=== PATIENT | male | born 1960 | race African-American/Black ===

== ENCOUNTER 2021-10-05 06:35 | Emergency (ER) | payer MEDICAID ==
[~2021-10-05] VITALS: Ht 167.6 cm; Wt 82.7 kg
[2021-10-05] MEDS ORDERED: ACET-1080 PO (08:13)
[2021-10-05] MEDS ORDERED: ACETAMINOPHEN 500 MG TAB PO ONE (08:15)
[2021-10-05 08:34] VITALS: BP 93/68
== END 2021-10-05 08:33 | disposition home or self-care (01) ==
LOC: ER 06:35
DX: S93.402A Sprain of unspecified ligament of left ankle, initial encounter (principal); I10 Essential (primary) hypertension; E78.5 Hyperlipidemia, unspecified; Z86.73 Personal history of transient ischemic attack (TIA), and cerebral infarction without residual deficits; Z79.899 Other long term (current) drug therapy; X50.1XXA Overexertion from prolonged static or awkward postures, initial encounter; Y93.89 Activity, other specified; Y92.89 Other specified places as the place of occurrence of the external cause; Y99.8 Other external cause status
CPT/HCPCS: 73610

== ENCOUNTER 2023-06-20 01:27 | Emergency (ER) | payer MEDICAID ==
[~2023-06-20] VITALS: Ht 175.3 cm; Wt 77.1 kg
[~2023-06-20 01:27] MED LIST: ACET-1080 PO
[2023-06-20 01:49] LABS: Basophils # (auto) 0 10 ^3/uL (0-0.2); Basophils % (auto) 0.7 % (0.0-2.0); Eosinophils # (auto) 0.1 10 ^3/uL (0-0.8); Hematocrit 45.7 % (41.0-53.0); Hemoglobin 14.8 g/dL (13.5-17.5); Lymphocytes # (auto) 1.7 10 ^3/uL (0.4-5.4); Lymphocytes % (auto) 28.2 % (10.0-50.0); Mean Corpuscular Hemoglobin 27.8 pg (28.0-32.0); Mean Corpuscular Hgb Conc. 32.3 g/dL (32.0-36.0); Mean Corpuscular Volume 86.1 fL (80.0-100.0); Monocytes # (auto) 0.4 10 ^3/uL (0-1.3); Neutrophils # (auto) 3.8 10 ^3/uL (1.6-8.6); Neutrophils % (auto) 62.1 % (37.0-80.0); Nucleated Red Blood Cells % 0.1 %; Red Blood Cells 5.31 10^6/uL (4.5-5.90); Red Cell Distribution Width 17.6 % (11.8-14.3); White Blood Cell 6.2 10^3/uL (4.4-10.8)
[2023-06-20 02:11] LABS: Alanine Aminotransferase 33 U/L (7-40); Albumin 3.8 g/dL (3.2-4.8); Alkaline Phosphatase 98 U/L (46-116); Anion Gap 8 (5-15); Aspartate Aminotransferase 59 U/L (13-40); Calcium 8.8 mg/dL (8.5-10.1); Carbon Dioxide 28 mmol/L (20-30); Chloride 108 mmol/L (98-107); Glucose 112 mg/dL (74-106); Potassium 3.1 mmol/L (3.5-5.1); Sodium 144 mmol/L (136-145)
[2023-06-20 02:12] LABS: Bilirubin, Total 0.3 mg/dL (0.2-1.0); Total Protein 7.6 g/dL (5.7-8.2)
[2023-06-20 02:14] LABS: BUN/Creatinine Ratio 6.6 (10.0-20.0); Blood Urea Nitrogen < 5 mg/dL (9-23)
[2023-06-20] MEDS: levETIRAcetam 1000 mg/100ml 100 ML IV ONE (03:10)
[2023-06-20 03:30] VITALS: PULSE 78; RESP 20; O2SAT 97
[2023-06-20 07:31] VITALS: PULSE 75; RESP 20; O2SAT 95
[2023-06-20] MEDS: IOHEXOL 300 MG/ML 100ML BOTTLE IJ ONE (07:52)
[2023-06-20 08:05] LABS: Magnesium 1.9 mg/dL (1.6-2.6)
[2023-06-20] MEDS: SODIUM CHLORIDE 0.9% 1,000 ML IVB ONE (10:25)
[2023-06-20] MEDS: POTASSIUM EFFERVESENT TAB 25 MEQ PO ONE (10:35)
[2023-06-20 10:45] VITALS: BP 125/84; PULSE 88; RESP 15; TEMP 97.8; O2SAT 96
== END 2023-06-20 11:15 | disposition home or self-care (01) ==
LOC: ER 01:27 → EDBD 01:27 → ER 11:15
DX: G40.909 Epilepsy, unspecified, not intractable, without status epilepticus (principal); F10.10 Alcohol abuse, uncomplicated; E87.6 Hypokalemia; K40.90 Unilateral inguinal hernia, without obstruction or gangrene, not specified as recurrent; K76.0 Fatty (change of) liver, not elsewhere classified; Z86.73 Personal history of transient ischemic attack (TIA), and cerebral infarction without residual deficits; E78.5 Hyperlipidemia, unspecified; I10 Essential (primary) hypertension; Y90.8 Blood alcohol level of 240 mg/100 ml or more
CPT/HCPCS: 36415; 70450; 71045; 71046; 72125; 74177; 80053; 80320; 82542; 83690; 83735; 85025; 93005; 96361; 96365; 99285; J1953; J7030; Q9967

== ENCOUNTER 2023-07-24 11:17 | Inpatient (IN) | payer MEDICAID ==
[~2023-07-24] VITALS: Ht 167.6 cm; Wt 75.4 kg
[2023-07-24 12:11] LABS: Basophils # (auto) 0 10 ^3/uL (0-0.2); Basophils % (auto) 0.4 % (0.0-2.0); Eosinophils # (auto) 0.1 10 ^3/uL (0-0.8); Eosinophils % (auto) 0.7 % (0.0-7.0); Hematocrit 47.5 % (41.0-53.0); Hemoglobin 15.8 g/dL (13.5-17.5); Lymphocytes # (auto) 0.8 10 ^3/uL (0.4-5.4); Lymphocytes % (auto) 10.2 % (10.0-50.0); Mean Corpuscular Hemoglobin 28.6 pg (28.0-32.0); Mean Corpuscular Hgb Conc. 33.2 g/dL (32.0-36.0); Mean Corpuscular Volume 86.1 fL (80.0-100.0); Monocytes # (auto) 0.5 10 ^3/uL (0-1.3); Monocytes % (auto) 6.6 % (0.0-12.0); Neutrophils # (auto) 6.2 10 ^3/uL (1.6-8.6); Neutrophils % (auto) 82.1 % (37.0-80.0); Nucleated Red Blood Cells % 0.2 %; Red Blood Cells 5.51 10^6/uL (4.5-5.90); Red Cell Distribution Width 16.5 % (11.8-14.3); White Blood Cell 7.6 10^3/uL (4.4-10.8)
[2023-07-24 12:19] LABS: Chloride 106 mmol/L (98-107); Potassium 3.3 mmol/L (3.5-5.1); Sodium 136 mmol/L (136-145)
[2023-07-24 12:20] LABS: Anion Gap 5 (5-15); Carbon Dioxide 25 mmol/L (20-30)
[2023-07-24 12:21] LABS: Calcium 9.9 mg/dL (8.5-10.1)
[2023-07-24 12:25] LABS: Glucose 120 mg/dL (74-106)
[2023-07-24 12:27] LABS: BUN/Creatinine Ratio 5.4 (10.0-20.0); Blood Urea Nitrogen < 5 mg/dL (9-23)
[2023-07-24] MEDS: IOHEXOL 300 MG/ML 100ML BOTTLE IJ ONE (13:43)
[2023-07-24] MEDS ORDERED: ACETAMINOPHEN 325 MG TAB PO PRN (16:45)
[2023-07-24] MEDS: SODIUM CHLORIDE 0.9% 1,000 ML IV SCH (16:45)
[2023-07-24] MEDS: metroNIDAZOLE 500MG/100ML 100 ML IV ONE (17:34)
[2023-07-25] VITALS (8 sets, daily range): BP systolic 107–137; BP diastolic 68–90; PULSE 60–70; RESP 16–20; TEMP 97.5–98.2; O2SAT 97–100
[2023-07-25] MEDS: PIPERACILLIN-TAZOB 3.375GM 100 ML IV SCH
[2023-07-25] MEDS: MORPHINE SULFATE INJ 2 MG/ml SYRG IV PRN (00:06)
[2023-07-25] MEDS: ONDANSETRON HCL 4 MG/2 ML VIAL IV PRN (00:15)
[2023-07-25] MEDS ORDERED: PHEN1CAP60 PO (04:33)
[2023-07-25 07:02] LABS: Anion Gap 4 (5-15); Carbon Dioxide 27 mmol/L (20-30); Chloride 108 mmol/L (98-107); Potassium 3.6 mmol/L (3.5-5.1); Sodium 139 mmol/L (136-145)
[2023-07-25 07:03] LABS: Calcium 8.6 mg/dL (8.5-10.1)
[2023-07-25 07:08] LABS: Glucose 80 mg/dL (74-106)
[2023-07-25 07:14] LABS: Blood Urea Nitrogen < 5 mg/dL (9-23)
[2023-07-25] MEDS ORDERED: NALOXONE HCL 0.4 MG/ML VIAL ONE (12:21)
[2023-07-25] MEDS ORDERED: SODIUM CHLORIDE LOCK 10 ML ONE (12:21)
[2023-07-25] MEDS ORDERED: FLUMAZENIL 0.1 MG/ML INJ 10ML MDV IV ONE (12:21)
[2023-07-25] MEDS ORDERED: diphenhdrAMINE HCL 50 MG/1 ML VL ONE (12:29)
[2023-07-25] MEDS: fentaNYL CITRATE 100 MCG/2 ML VL ONE (14:30)
[2023-07-25] MEDS: MIDAZOLAM HCL 5 MG/ML-1ML VIAL ONE (14:30)
[2023-07-25] MEDS: HYDROcodone-ACET 5/325MG TAB PO PRN (23:10)
[2023-07-26 05:00] VITALS: BP 115/75; PULSE 62; RESP 18; TEMP 98.6; O2SAT 97
[2023-07-26 08:46] LABS: Hepatitis B Surface Antigen Negative (Negative)
[2023-07-26 09:00] VITALS: BP 120/77; PULSE 62; RESP 15; TEMP 97.8; O2SAT 96
[2023-07-26 09:08] LABS: Hepatitis C Antibody Negative (Negative)
[2023-07-26] MEDS ORDERED: ASPI1TAB20 PO (12:31)
[2023-07-26] MEDS ORDERED: DOCU-94 PO (12:32)
[2023-07-26 13:25] VITALS: BP 111/74; PULSE 50; RESP 22; TEMP 98.6; O2SAT 96
[2023-07-26 17:20] VITALS: BP 130/73; PULSE 61; RESP 20; TEMP 98.4; O2SAT 98
[2023-07-26 20:28] LABS: Urine Bacteria None Seen /hpf (None Seen); Urine WBC None Seen /hpf (0 - 3)
[2023-07-26 20:39] LABS: Urine Blood Negative /uL (Negative); Urine Clarity Clear (Clear); Urine Color Colorless (Yellow); Urine Protein, UAD Negative (Negative); Urine Specific Gravity 1.002 (1.001-1.035); Urine Urobilinogen Normal (Negative); Urine pH 5.5 (5.0-9.0)
[2023-07-26 21:00] VITALS: BP 135/78; PULSE 71; RESP 18; TEMP 97.8; O2SAT 99
[2023-07-27 01:00] VITALS: BP 126/75; PULSE 60; RESP 18; TEMP 97.9; O2SAT 98
[2023-07-27 05:00] VITALS: BP 132/78; PULSE 54; RESP 18; TEMP 97.8; O2SAT 98
[2023-07-27 09:00] VITALS: BP 122/80; PULSE 77; RESP 17; TEMP 98.4; O2SAT 98
[2023-07-27] MEDS ORDERED: METR-344 PO (14:28)
[2023-07-27] MEDS ORDERED: AMOX500T86 PO (14:28)
[2023-07-27] MEDS ORDERED: HYDR-4902 PO (16:36)
[2023-07-27 17:00] VITALS: BP_SYST 107; BP_SYST 122; BP_DIAS 74; BP_DIAS 87; PULSE 66; PULSE 71; RESP 16; RESP 19; TEMP 98.2; TEMP 98.6; O2SAT 97; O2SAT 99
== END 2023-07-27 19:10 | disposition home or self-care (01) | DRG 249 ==
LOC: ER 11:17 → OVERFLOW 16:42 → CENTRAL 07-25 03:18
PROVIDERS: ADMIT Internal Medicine; ATTEND Internal Medicine
PROC: 0DBP8ZX Excision of Rectum, Via Natural or Artificial Opening Endoscopic, Diagnostic (ICD-10-PCS; principal; 2023-07-25 14:28)
DX: K52.9 Noninfective gastroenteritis and colitis, unspecified (principal); E11.9 Type 2 diabetes mellitus without complications; K62.89 Other specified diseases of anus and rectum; I10 Essential (primary) hypertension; F17.210 Nicotine dependence, cigarettes, uncomplicated; E78.5 Hyperlipidemia, unspecified; G40.909 Epilepsy, unspecified, not intractable, without status epilepticus; K40.20 Bilateral inguinal hernia, without obstruction or gangrene, not specified as recurrent; Z86.73 Personal history of transient ischemic attack (TIA), and cerebral infarction without residual deficits; Z83.3 Family history of diabetes mellitus; Z82.3 Family history of stroke; Z82.0 Family history of epilepsy and other diseases of the nervous system; Z79.4 Long term (current) use of insulin
CPT/HCPCS: 36415; 45331; 73502; 74177; 80048; 81001; 85025; 86803; 87086; 87340; G0378; J2250; J2405; J2543; J3490

== ENCOUNTER 2024-02-04 11:40 | Emergency (ER) | payer MEDICAID ==
[~2024-02-04] VITALS: Ht 167.6 cm; Wt 72.7 kg
[~2024-02-04 11:40] MED LIST changes: +AMOX500T86 PO; +ASPI1TAB20 PO; +DOCU-94 PO; +HYDR-4902 PO; +METR-344 PO; +PHEN1CAP38 PO
--- NOTE | 2024-02-04 12:01 | ED.PDOC ---
History of Present Illness HPI Comments 63-year-old male who comes in with chief complaint of multiple seizures today. The patient has a history of seizures in his currently on Depakote and Keppra. According to the family, the patient had a seizure and when the paramedics arrived on scene, the patient had multiple seizures lasting a total of between five and 7 minutes. The seizures were tonic-clonic in nature. The patient was also been drinking some alcohol. The paramedics stated that the patient became somewhat hypotensive so they gave him a normal saline bolus. EN route, the patient was given a total of 5 mg IV push of Versed. Upon arrival, the patient was still postictal. Chief Complaint: Seizure Time Seen by MD: 11:45 Reviewed Notes: Nurses Notes, Administrative Support Associate Notes, Medications, Allergies (No allergies to medications) Allergies: Coded Allergies: NO KNOWN ALLERGIES (Unverified , 06/20/23) Home Meds Active Scripts Hydrocodone-Acetaminophen (Hydrocodone Bitartrate/AC 5-325 mg) 1 Tab Tab, 1 TAB PO Q8HPRN PRN, #10 TAB Prov:YASMEEN LANDIN MD 07/27/23 Metronidazole (Flagyl) 500 Mg Tab, 1 TAB PO BID, #14 TAB Prov:YASMEEN LANDIN MD 07/27/23 Amoxicillin & Pot Clavulanate (Augmentin) 500 Mg Tab, 1 TAB PO BID, #14 TAB Prov:YASMEEN LANDIN MD 07/27/23 Acetaminophen (Tylenol 8 Hour Arthritis) 650 Mg Tab, 650 MG PO TID, #30 TAB Prov:TONI LOMBARDI 10/05/21 Reported Medications Docusate Sodium (Colace) 100 Mg Cap, 1 CAP PO BID, #60 CAP 07/26/23 Aspirin (Aspir-81) 81 Mg Tab, 81 MG PO BID, TAB 07/26/23 Phenytoin Sodium (DILANTIN CAPSULE) 100 Mg Cp, 200 MG PO BID for 30 Days 07/25/23 Information Source: Patient, Emergency Med Personnel Mode of Arrival: EMS Severity: Moderate Timing: Minutes, Days Duration: Intermittent Prehospital treatment: Accucheck, Portfolio Accountant, IVF, Other (The Versed 5 mg IV push, normal saline bolus) Associated signs and symptoms No associated nausea vomiting or diarrhea Past Medical History PAST MEDICAL HISTORY: CVA, DM, High Lipids, HTN, Seizures Surgical History: Tonsillectomy Family History Family History: Family hx of DM Social History Smoker: Cigarettes Alcohol: Occasionally Drugs: Denies Drug Use Lives In: Home Constitutional: denies: chills, diaphoresis, fatigue, fever, malaise, sweats, weakness, others EENTM: denies: blurred vision, double vision, ear bleeding, ear discharge, ear drainage, ear pain, ear ringing, eye pain, eye redness, hearing loss, mouth pain, mouth swelling, nasal discharge, nose bleeding, nose congestion, nose pain, photophobia, tearing, throat pain, throat swelling, voice changes, others Respiratory: denies: cough, hemoptysis, orthopnea, SOB at rest, shortness of breath, SOB with excertion, stridor, wheezing, others Cardiovascular: denies: chest pain, dizzy spells, diaphoresis, Dyspnea on exertion, edema, irregular heart beat, left arm pain, lightheadedness, palpitations, PND, syncope, others Gastrointestinal: denies: abdomen distended, abdominal pain, blood streaked bowels, constipated, diarrhea, dysphagia, difficulty swallowing, hematemesis, melena, nausea, poor appetite, poor fluid intake, rectal bleeding, rectal pain, vomiting, others Genitourinary: denies: burning, dysuria, flank pain, frequency, hematuria, incontinence, penile discharge, penile sore, pain, testicle pain, testicle swelling, urgency, others Neurological: reports: seizure; denies: dizziness, fainting, headache, left sided numbness, left sided weakness, numbness, paresthesia, pre-existing deficit, right sided numbness, right sided weakness, speech problems, tingling, tremors, weakness, others Musculoskeletal: denies: back pain, gout, joint pain, joint swelling, muscle pain, muscle stiffness, neck pain, others Integumetry: denies: bruises, change in color, change in hair/nails, dryness, laceration, lesions, lumps, rash, wounds, others Allergic/Immunocompromised: denies: Difficulty Healing, Frequent Infections, Hives, Itching, others Hematologic/Lymphatic: denies: anemia, blood clots, easy bleeding, easy bruising, swollen glands, others Endocrine: denies: excessive hunger, excessive sweating, excessive thirst, excessive urination, flushing, intolerance to cold, intolerance to heat, unexplained weight gain, unexplained weight loss, others Psychiatric: denies: anxiety, bipolar disorder, depression, hopeless, panic disorder, schizophrenia, sleepless, suicidal, others Physical Exam General Appearance: Mild Distress HEENT: Normal ENT Inspection, Pharynx Normal, TMs Normal Neck: Full Range of Motion, Non-Tender, Normal, Normal Inspection Respiratory: Chest Non-Tender, Lungs Clear, No Accessory Muscle Use, No Respiratory Distress, Normal Breath Sounds Cardiovascular: No Edema, No JVD, No Murmur, No Gallop, Normal Peripheral Pulses, Regular Rate/Rhythm Breast Exam: Deferred Gastrointestinal: No Organomegaly, Non Tender, No Pulsatile Mass, Normal Bowel Sounds, Soft Genitalia: Deferred Pelvic: Deferred Rectal: Deferred Extremities: No calf tenderness, Normal capillary refill, Normal inspection, Normal range of motion, Non-tender, No pedal edema Musculoskeletal : Apperance: Normal Neurologic: [facility] II-XII nml as Tested, Motor Weakness, No Sensory Deficits, Other (Postictal) Cerebellar Function: Normal Reflexes: Normal Skin: Dry, Normal Color, Warm Lymphatic: No Adenopathy Was a procedure done? Was a procedure done?: No EKG EKG : Pulse Rate (adult): 76 [place]: Normal Cardiac Rhythm: NSR Hypertrophy: LAE ST: Nonsp Differential Dx Considerations may include: CVA, seizures, ETOH X-Ray, Labs, Meds, VS Vital Signs Date Time Temp Pulse Resp B/P (MAP) Pulse Ox O2 Delivery O2 Flow Rate FiO2 02/04/24 16:00 71 02/04/24 14:33 67 19 106/68 (81) 98 02/04/24 12:07 71 02/04/24 12:01 76 02/04/24 11:58 97.9 90 21 91/50 (64) 98 02/04/24 11:46 76 Lab Test 02/04/24 13:26 Range/Units White Blood Count 4.4 4.4-10.8 10^3/uL Red Blood Count 4.87 4.5-5.90 10^6/uL Hemoglobin 13.0 L 13.5-17.5 g/dL Hematocrit 40.2 L 41.0-53.0 % Mean Corpuscular Volume 82.5 80.0-100.0 fL Mean Corpuscular Hemoglobin 26.7 L 28.0-32.0 pg Mean Corpuscular Hemoglobin Concent 32.4 32.0-36.0 g/dL Red Cell Distribution Width 17.0 H 11.8-14.3 % Platelet Count 230 140-450 10^3/uL Mean Platelet Volume 8.4 6.9-10.8 fL Neutrophils (%) (Auto) 52.1 37.0-80.0 % Lymphocytes (%) (Auto) 28.2 10.0-50.0 % Monocytes (%) (Auto) 11.8 0.0-12.0 % Eosinophils (%) (Auto) 6.5 0.0-7.0 % Basophils (%) (Auto) 1.4 0.0-2.0 % Neutrophils # (Auto) 2.3 1.6-8.6 10 ^3/uL Lymphocytes # (Auto) 1.2 0.4-5.4 10 ^3/uL Monocytes # (Auto) 0.5 0-1.3 10 ^3/uL Eosinophils # (Auto) 0.3 0-0.8 10 ^3/uL Basophils # (Auto) 0.1 0-0.2 10 ^3/uL Nucleated Red Blood Cells 0.3 % Sodium Level 145 136-145 mmol/L Potassium Level 3.7 3.5-5.1 mmol/L Chloride Level 111 H 98-107 mmol/L Carbon Dioxide Level 26 20-31 mmol/L Anion Gap 8 5-15 Blood Urea Nitrogen 7 L 9-23 mg/dL Creatinine 0.89 0.700-1.30 mg/dL Glomerular Filtration Rate Calc 96 >90 mL/min BUN/Creatinine Ratio 7.9 L 10.0-20.0 Serum Glucose 103 74-106 mg/dL Calcium Level 9.1 8.7-10.4 mg/dL Plasma/Serum Blood Alcohol 179.8 H <10 mg/dL Current Medications Medications (Trade) Dose Ordered Sig/Cesia Route Start Time Stop Time Status Last Admin Levetiracetam 100 ml @ 400 mls/hr ONCE ONCE IV 02/04/24 12:00 02/04/24 12:14 DC 02/04/24 12:16 IV Hep-Lock was established Seizure precautions were placed on the patient We will continue to bolus the patient with normal saline The patient was given Keppra 1000 mg IV push The patient was now awakened. He states that he does take Dilantin and Depakote. His significant other is at bedside and states that he is not compliant with his medications His alcohol level is 179.8 The patient's CBC and chemistry panel are within normal limits The patient is being discharged and will follow up with the primary care doctor The patient will return to the emergency department's condition worsens Images Reviewed?: Images reviewed and evaluated by me Time of 1ST Reevaluation: 12:00 Reevaluation 1ST: Unchanged Patient Education/Counseling: Diagnosis, Treatment, Prognosis, Need For Follow Up Family Education/Counseling: Diagnosis, Treatment, Prognosis, Need For Follow Up Departure 1 Departure Time of Disposition: 16:42 Impression: Primary Impression: Alcohol abuse Additional Impression: Breakthrough seizure Disposition: 01 HOME / SELF CARE / HOMELESS Condition: Fair Discharged With: Self, Significant Other Critical Care Note Critical Care Time?: Yes (35 min-critical care time only) Stability Stability form required: No Heart Score Heart Score: Heart Score Response (Comments) Value History N/A 0 EKG N/A 0 Age N/A 0 Risk Factors N/A 0 Troponin N/A 0 Total 0 RUTH BRADY MD Feb 04, 2024 12:01
[2024-02-04] MEDS: levETIRAcetam 1000 mg/100ml 100 ML IV ONE (12:16)
[2024-02-04 13:36] LABS: Basophils # (auto) 0.1 10 ^3/uL (0-0.2); Basophils % (auto) 1.4 % (0.0-2.0); Eosinophils # (auto) 0.3 10 ^3/uL (0-0.8); Eosinophils % (auto) 6.5 % (0.0-7.0); Hematocrit 40.2 % (41.0-53.0); Lymphocytes # (auto) 1.2 10 ^3/uL (0.4-5.4); Lymphocytes % (auto) 28.2 % (10.0-50.0); Mean Corpuscular Hemoglobin 26.7 pg (28.0-32.0); Mean Corpuscular Hgb Conc. 32.4 g/dL (32.0-36.0); Mean Corpuscular Volume 82.5 fL (80.0-100.0); Monocytes # (auto) 0.5 10 ^3/uL (0-1.3); Monocytes % (auto) 11.8 % (0.0-12.0); Neutrophils # (auto) 2.3 10 ^3/uL (1.6-8.6); Neutrophils % (auto) 52.1 % (37.0-80.0); Nucleated Red Blood Cells % 0.3 %; Platelet Count (auto) 230 10^3/uL (140-450); Red Blood Cells 4.87 10^6/uL (4.5-5.90); White Blood Cell 4.4 10^3/uL (4.4-10.8)
[2024-02-04 13:50] LABS: Potassium 3.7 mmol/L (3.5-5.1); Sodium 145 mmol/L (136-145)
[2024-02-04 13:51] LABS: Anion Gap 8 (5-15); Calcium 9.1 mg/dL (8.7-10.4); Carbon Dioxide 26 mmol/L (20-31)
[2024-02-04 13:56] LABS: BUN/Creatinine Ratio 7.9 (10.0-20.0); Glucose 103 mg/dL (74-106)
[2024-02-04 13:57] LABS: Blood Alcohol 179.8 mg/dL (<10)
[2024-02-04 14:03] LABS: Blood Urea Nitrogen 7 mg/dL (9-23); Chloride 111 mmol/L (98-107)
[2024-02-04 14:33] VITALS: BP 106/68; RESP 19; O2SAT 98
[2024-02-04 16:00] VITALS: PULSE 71
[2024-02-04] MEDS: PHENYTOIN SODIUM 100 MG CAP PO ONE (17:10)
--- NOTE | 2024-02-05 08:00 | ECG ---
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
== END 2024-02-04 18:01 | disposition home or self-care (01) ==
LOC: EDBD 11:40 → ER 11:44
DX: F10.10 Alcohol abuse, uncomplicated (principal); R56.9 Unspecified convulsions; F17.210 Nicotine dependence, cigarettes, uncomplicated; E11.9 Type 2 diabetes mellitus without complications; I10 Essential (primary) hypertension; Z79.82 Long term (current) use of aspirin; Z86.73 Personal history of transient ischemic attack (TIA), and cerebral infarction without residual deficits; Z90.89 Acquired absence of other organs; Z79.899 Other long term (current) drug therapy; Y90.6 Blood alcohol level of 120-199 mg/100 ml
CPT/HCPCS: 36415; 80048; 80320; 82947; 85025; 93005; 96374; 99284; J1953; 96365

== ENCOUNTER 2024-02-05 09:14 | Emergency (ER) | payer MEDICAID ==
[~2024-02-05] VITALS: Ht 167.6 cm; Wt 74.0 kg
[2024-02-05 09:22] VITALS: BP 125/76; PULSE 86; RESP 18; TEMP 98.5; O2SAT 94
--- NOTE | 2024-02-05 09:27 | ECG ---
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
[2024-02-05] MEDS ORDERED: SODIUM CHLORIDE 0.9% 1,000 ML IV ONE (10:00)
--- NOTE | 2024-02-05 10:09 | ED.PDOC ---
History of Present Illness HPI Comments 63Y M with PMHx epilepsy presents to ED via EMS for chief complaint syncope. Pt denies chest pain, SOB, and headache. Per EMS, pt was at preop for hernia surgery when he suddenly passed out. Pt states he was not shaking and "just went out". Pt was seen at [facility] ER yesterday, 02/04/2024, for dx alcohol abuse. Pt states his last alcoholic drink was yesterday morning. Chief Complaint: Syncope Time Seen by MD: 09:22 Primary Care Provider: unknown Reviewed Notes: Concession Worker Notes, Medications, Allergies Allergies: Coded Allergies: NO KNOWN ALLERGIES (Unverified , 06/20/23) Home Meds Active Scripts Hydrocodone-Acetaminophen (Hydrocodone Bitartrate/AC 5-325 mg) 1 Tab Tab, 1 TAB PO Q8HPRN PRN, #10 TAB Prov:YASMEEN LANDIN MD 07/27/23 Metronidazole (Flagyl) 500 Mg Tab, 1 TAB PO BID, #14 TAB Prov:YASMEEN LANDIN MD 07/27/23 Amoxicillin & Pot Clavulanate (Augmentin) 500 Mg Tab, 1 TAB PO BID, #14 TAB Prov:YASMEEN LANDIN MD 07/27/23 Acetaminophen (Tylenol 8 Hour Arthritis) 650 Mg Tab, 650 MG PO TID, #30 TAB Prov:TONI LOMBARDI 10/05/21 Reported Medications Docusate Sodium (Colace) 100 Mg Cap, 1 CAP PO BID, #60 CAP 07/26/23 Aspirin (Aspir-81) 81 Mg Tab, 81 MG PO BID, TAB 07/26/23 Phenytoin Sodium (DILANTIN CAPSULE) 100 Mg Cp, 200 MG PO BID for 30 Days 07/25/23 Information Source: Patient, Emergency Med Personnel Mode of Arrival: EMS Severity: Mild Timing: Hours Duration: Other Prehospital treatment: None Past Medical History PAST MEDICAL HISTORY: CVA, DM, High Lipids, HTN, Seizures Surgical History: Tonsillectomy Family History Family History: Family hx of DM Social History Smoker: Cigarettes Alcohol: Occasionally Drugs: Denies Drug Use Lives In: Home Constitutional: denies: chills, diaphoresis, fatigue, fever, malaise, sweats, weakness, others EENTM: denies: blurred vision, double vision, ear bleeding, ear discharge, ear drainage, ear pain, ear ringing, eye pain, eye redness, hearing loss, mouth pain, mouth swelling, nasal discharge, nose bleeding, nose congestion, nose pain, photophobia, tearing, throat pain, throat swelling, voice changes, others Respiratory: denies: cough, hemoptysis, orthopnea, SOB at rest, shortness of breath, SOB with excertion, stridor, wheezing, others Cardiovascular: denies: chest pain, dizzy spells, diaphoresis, Dyspnea on exertion, edema, irregular heart beat, left arm pain, lightheadedness, palpitations, PND, syncope, others Gastrointestinal: denies: abdomen distended, abdominal pain, blood streaked bowels, constipated, diarrhea, dysphagia, difficulty swallowing, hematemesis, melena, nausea, poor appetite, poor fluid intake, rectal bleeding, rectal pain, vomiting, others Genitourinary: denies: burning, dysuria, flank pain, frequency, hematuria, incontinence, penile discharge, penile sore, pain, testicle pain, testicle swelling, urgency, others Neurological: reports: others (syncope); denies: dizziness, fainting, headache, left sided numbness, left sided weakness, numbness, paresthesia, pre-existing deficit, right sided numbness, right sided weakness, seizure, speech problems, tingling, tremors, weakness Musculoskeletal: denies: back pain, gout, joint pain, joint swelling, muscle pain, muscle stiffness, neck pain, others Integumetry: denies: bruises, change in color, change in hair/nails, dryness, laceration, lesions, lumps, rash, wounds, others Allergic/Immunocompromised: denies: Difficulty Healing, Frequent Infections, Hives, Itching, others Hematologic/Lymphatic: denies: anemia, blood clots, easy bleeding, easy bruising, swollen glands, others Endocrine: denies: excessive hunger, excessive sweating, excessive thirst, excessive urination, flushing, intolerance to cold, intolerance to heat, unexplained weight gain, unexplained weight loss, others Psychiatric: denies: anxiety, bipolar disorder, depression, hopeless, panic disorder, schizophrenia, sleepless, suicidal, others All Other Systems: Reviewed and Negative Physical Exam General Appearance: Moderate Distress, Normal HEENT: Normal ENT Inspection, Pharynx Normal, TMs Normal Neck: Full Range of Motion, Non-Tender, Normal, Normal Inspection Respiratory: Chest Non-Tender, Lungs Clear, No Accessory Muscle Use, No Respiratory Distress, Normal Breath Sounds Cardiovascular: No Edema, No JVD, No Murmur, No Gallop, Normal Peripheral Pulses, Regular Rate/Rhythm Breast Exam: Deferred Gastrointestinal: No Organomegaly, Non Tender, No Pulsatile Mass, Normal Bowel Sounds, Soft Genitalia: Deferred Pelvic: Deferred Rectal: Deferred Extremities: No calf tenderness, Normal capillary refill, Normal inspection, Normal range of motion, Non-tender, No pedal edema Musculoskeletal : Apperance: Normal Neurologic: Alert, home health manager II-XII nml as Tested, No Motor Deficits, Normal Affect, Normal Mood, No Sensory Deficits Cerebellar Function: Normal Reflexes: Normal Skin: Dry, Normal Color, Warm Peripheral Pulses: 3+ Radial (R), 3+ Radial (L) Lymphatic: No Adenopathy Was a procedure done? Was a procedure done?: No Differential Dx Considerations may include: Syncope Alcohol withdrawal X-Ray, Labs, Meds, VS Vital Signs Date Time Temp Pulse Resp B/P (MAP) Pulse Ox O2 Delivery O2 Flow Rate FiO2 02/05/24 09:22 86 18 94 Room Air* 0 21 02/05/24 09:22 98.5 86 18 125/76 (92) 94 98.5 02/05/24 09:21 99.1 95 16 135/92 (106) 99 02/05/24 09:19 105 Patient alert. Possible syncope. Vitals stable. Answering all questions. Was seen here for same symptom yesterday. Reviewed his previous visit. No obvious injury. EKG reviewed does not show any acute changes. Explained to the patient. Continue cardiac monitoring. Time of 1ST Reevaluation: 09:52 Reevaluation 1ST: Unchanged Patient Education/Counseling: Diagnosis, Treatment Family Education/Counseling: No Family Present Additional Information I reviewed the following notes from patient's past medical encounters: [facility] discharge 07/27/2023 The following tests were ordered, and results were reviewed by me: EKG, blood alcohol, CBC, BMP, UA Additional Information was gathered from interviewing the following independent historians: EMS I discussed treatment and results with medical personnel. Departure 1 Departure Time of Disposition: 11:00 Impression: Primary Impression: Syncope Qualified Codes: R55 - Syncope and collapse Additional Impression: Alcohol abuse Disposition: ADMITTED INPATIENT Admit to: Med Surg Condition: Guarded Critical Care Note Critical Care Time?: Yes (45 min-critical care time only) Stability Stability form required: No Heart Score Heart Score: Heart Score Response (Comments) Value History Slightly Suspicious 0 EKG Normal 0 Age 45-64 1 Risk Factors 1 or 2 risk factors 1 Troponin Normal limit 0 Total 2 I personally scribed for SHAHRAM HEATON MD ([email or web address]) on 02/05/24 at 10:09. Electronically submitted by Karen Hernandez ([employer]). I personally scribed for SHAHRAM HEATON MD ([email or web address]) on 02/05/24 at 10:43. Electronically submitted by Karen Hernandez ([email or web address]). SHAHRAM HEATON MD Feb 05, 2024 10:09
== END 2024-02-05 09:50 | disposition left against medical advice (07) ==
LOC: ER 09:14 → EDBD 09:14 → ER 09:50
DX: R55 Syncope and collapse (principal); F10.10 Alcohol abuse, uncomplicated; I10 Essential (primary) hypertension; E11.9 Type 2 diabetes mellitus without complications; E78.5 Hyperlipidemia, unspecified; Z86.69 Personal history of other diseases of the nervous system and sense organs; F17.210 Nicotine dependence, cigarettes, uncomplicated; Z79.82 Long term (current) use of aspirin; Z79.899 Other long term (current) drug therapy; Z86.73 Personal history of transient ischemic attack (TIA), and cerebral infarction without residual deficits; Z90.89 Acquired absence of other organs
CPT/HCPCS: 93005

== ENCOUNTER 2024-06-28 03:37 | Emergency (ER) | payer MEDICAID ==
[~2024-06-28] VITALS: Ht 167.6 cm; Wt 72.8 kg
--- NOTE | 2024-06-28 04:11 | ED.PDOC ---
History of Present Illness HPI Comments 63-year-old came to ER via EMS for syncope. Patient has history of hypertension and chronic alcoholism. 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 Patient states he has been having recurrent syncopal attacks recently. State he has not taken his seizure medications since June 12. Earlier today, patient has been drinking again, and he felt like he was going to have a seizure episode so he called paramedics. Patient claims he had a seizure episode and not just a syncopal attack. 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 Notes Allergies: Coded Allergies: NO KNOWN ALLERGIES (Unverified , 06/20/23) Home Meds Active Scripts Divalproex Sodium (Depakote Er) 500 Mg Tab, 2 TAB PO QPM for 90 Days, #180 TAB 3 Refills Prov:CARL WILKINSON MD 06/28/24 Levetiracetam (Keppra) 1,000 Mg Tab, 1 TAB PO BID for 90 Days, #180 TAB 5 Refills Prov:CARL WILKINSON MD 06/28/24 Hydrocodone-Acetaminophen (Hydrocodone Bitartrate/AC 5-325 mg) 1 Tab Tab, 1 TAB PO Q8HPRN PRN, #10 TAB Prov:YASMEEN LANDIN MD 07/27/23 Metronidazole (Flagyl) 500 Mg Tab, 1 TAB PO BID, #14 TAB Prov:YASMEEN LANDIN MD 07/27/23 Amoxicillin & Pot Clavulanate (Augmentin) 500 Mg Tab, 1 TAB PO BID, #14 TAB Prov:YASMEEN LANDIN MD 07/27/23 Acetaminophen (Tylenol 8 Hour Arthritis) 650 Mg Tab, 650 MG PO TID, #30 TAB Prov:TONI LOMBARDI 10/05/21 Reported Medications Docusate Sodium (Colace) 100 Mg Cap, 1 CAP PO BID, #60 CAP 07/26/23 Aspirin (Aspir-81) 81 Mg Tab, 81 MG PO BID, TAB 07/26/23 Phenytoin Sodium (DILANTIN CAPSULE) 100 Mg Cp, 200 MG PO BID for 30 Days 07/25/23 Information Source: Patient, Emergency Med Personnel Mode of Arrival: Ambulatory Severity: Moderate Timing: Minutes Duration: Since onset Past Medical History PAST MEDICAL HISTORY: CVA, DM, High Lipids, HTN, Seizures Surgical History: Tonsillectomy Family History Family History: Family hx of DM Social History Smoker: Cigarettes Alcohol: Heavy Drugs: Denies Drug Use Lives In: Home Constitutional: denies: chills, diaphoresis, fatigue, fever, malaise, sweats, weakness, others EENTM: denies: blurred vision, double vision, ear bleeding, ear discharge, ear drainage, ear pain, ear ringing, eye pain, eye redness, hearing loss, mouth pain, mouth swelling, nasal discharge, nose bleeding, nose congestion, nose pain, photophobia, tearing, throat pain, throat swelling, voice changes, others Respiratory: denies: cough, hemoptysis, orthopnea, SOB at rest, shortness of breath, SOB with excertion, stridor, wheezing, others Cardiovascular: denies: chest pain, dizzy spells, diaphoresis, Dyspnea on exertion, edema, irregular heart beat, left arm pain, lightheadedness, palpitations, PND, syncope, others Gastrointestinal: denies: abdomen distended, abdominal pain, blood streaked bowels, constipated, diarrhea, dysphagia, difficulty swallowing, hematemesis, melena, nausea, poor appetite, poor fluid intake, rectal bleeding, rectal pain, vomiting, others Genitourinary: denies: burning, dysuria, flank pain, frequency, hematuria, incontinence, penile discharge, penile sore, pain, testicle pain, testicle swelling, urgency, others Neurological: reports: fainting, headache, seizure, weakness; denies: dizziness, left sided numbness, left sided weakness, numbness, paresthesia, pre- existing deficit, right sided numbness, right sided weakness, speech problems, tingling, tremors, others Musculoskeletal: denies: back pain, gout, joint pain, joint swelling, muscle pain, muscle stiffness, neck pain, others Integumetry: denies: bruises, change in color, change in hair/nails, dryness, laceration, lesions, lumps, rash, wounds, others Allergic/Immunocompromised: denies: Difficulty Healing, Frequent Infections, Hives, Itching, others Hematologic/Lymphatic: denies: anemia, blood clots, easy bleeding, easy bruising, swollen glands, others Endocrine: denies: excessive hunger, excessive sweating, excessive thirst, excessive urination, flushing, intolerance to cold, intolerance to heat, unexplained weight gain, unexplained weight loss, others Psychiatric: reports: others (Alcohol intoxication); denies: anxiety, bipolar disorder, depression, hopeless, panic disorder, schizophrenia, sleepless, suicidal Physical Exam General Appearance: No Apparent Distress, Normal HEENT: Normal ENT Inspection, Pharynx Normal, TMs Normal Neck: Full Range of Motion, Non-Tender, Normal, Normal Inspection Respiratory: Chest Non-Tender, Lungs Clear, No Accessory Muscle Use, No Respiratory Distress, Normal Breath Sounds Cardiovascular: No Edema, No JVD, No Murmur, No Gallop, Normal Peripheral Pu lses, Regular Rate/Rhythm Breast Exam: Deferred Gastrointestinal: No Organomegaly, Non Tender, No Pulsatile Mass, Normal Bowel Sounds, Soft Genitalia: Deferred Pelvic: Deferred Rectal: Deferred Extremities: No calf tenderness, Normal capillary refill, Normal inspection, Normal range of motion, Non-tender, No pedal edema Musculoskeletal : Apperance: Normal Neurologic: Alert, getter welder II-XII nml as Tested, No Motor Deficits, Normal Affect, Normal Mood, No Sensory Deficits Cerebellar Function: Normal Reflexes: Normal Skin: Dry, Normal Color, Warm Lymphatic: No Adenopathy Was a procedure done? Was a procedure done?: No Differential Dx Considerations may include: Anemia, electrolyte imbalance, seizure disorder, alcohol intoxication, syncope, CVA X-Ray, Labs, Meds, VS Vital Signs Date Time Temp Pulse Resp B/P (MAP) Pulse Ox O2 Delivery O2 Flow Rate FiO2 06/28/24 04:52 70 17 99 Room Air* 0 21 06/28/24 04:40 98.8 70 14 107/52 (70) 98 98.8 06/28/24 03:45 98.2 66 16 147/82 (103) 98 98.2 Lab Test 06/28/24 05:11 06/28/24 04:30 Range/Units Urine Color Colorless Yellow Urine Clarity Clear Clear Urine pH 5.5 5.0-9.0 Urine Specific Nixon 1.007 1.001-1.035 Urine Protein Negative Negative Urine Ketones Negative Negative Urine Blood Negative Negative /uL Urine Nitrite Negative Negative Urine Bilirubin Negative Negative Urine Urobilinogen Normal Negative mg/dL Urine Leukocyte Esterase Negative Negative /uL Urine RBC <1 0 - 3 /hpf Urine Microscopic WBC 0-3 /HPF Urine Squamous Epithelial Cells None seen <5 /hpf Urine Bacteria None seen None Seen /hpf Urine Glucose Normal Normal mg/dL White Blood Count 7.1 4.4-10.8 10^3/uL Red Blood Count 4.83 4.5-5.90 10^6/uL Hemoglobin 12.1 L 13.5-17.5 g/dL Hematocrit 37.0 L 41.0-53.0 % Mean Corpuscular Volume 76.6 L 80.0-100.0 fL Mean Corpuscular Hemoglobin 25.0 L 28.0-32.0 pg Mean Corpuscular Hemoglobin Concent 32.6 32.0-36.0 g/dL Red Cell Distribution Width 15.8 H 11.8-14.3 % Platelet Count 188 140-450 10^3/uL Mean Platelet Volume 8.6 6.9-10.8 fL Neutrophils (%) (Auto) 51.9 37.0-80.0 % Lymphocytes (%) (Auto) 33.4 10.0-50.0 % Monocytes (%) (Auto) 9.8 0.0-12.0 % Eosinophils (%) (Auto) 4.2 0.0-7.0 % Basophils (%) (Auto) 0.7 0.0-2.0 % Neutrophils # (Auto) 3.7 1.6-8.6 10 ^3/uL Lymphocytes # (Auto) 2.4 0.4-5.4 10 ^3/uL Monocytes # (Auto) 0.7 0-1.3 10 ^3/uL Eosinophils # (Auto) 0.3 0-0.8 10 ^3/uL Basophils # (Auto) 0.1 0-0.2 10 ^3/uL Nucleated Red Blood Cells 0.1 % Sodium Level 146 H 136-145 mmol/L Potassium Level 4.8 3.5-5.1 mmol/L Chloride Level 111 H 98-107 mmol/L Carbon Dioxide Level 25 20-31 mmol/L Anion Gap 10 5-15 Blood Urea Nitrogen 8 L 9-23 mg/dL Creatinine 0.85 0.700-1.30 mg/dL Glomerular Filtration Rate Calc 97 >90 mL/min BUN/Creatinine Ratio 9.4 L 10.0-20.0 Serum Glucose 83 74-106 mg/dL Calcium Level 9.2 8.7-10.4 mg/dL Magnesium Level 2.1 1.6-2.6 mg/dL Total Bilirubin 0.2 0.2-1.0 mg/dL Aspartate Amino Transferase (AST) 34 13-40 U/L Alanine Aminotransferase (ALT) 18 7-40 U/L Alkaline Phosphatase 71 46-116 U/L Total Protein 7.6 5.7-8.2 g/dL Albumin 4.3 3.2-4.8 g/dL Plasma/Serum Blood Alcohol 204.6 H <10 mg/dL Current Medications Medications (Trade) Dose Ordered Sig/Cesia Route Start Time Stop Time Status Last Admin Levetiracetam (Keppra Tablet) 1,000 mg ONCE ONCE PO 06/28/24 04:15 06/28/24 04:16 DC 06/28/24 04:15 Divalproex Sodium (Depakote "Dr" Tablet) 500 mg ONCE ONCE PO 06/28/24 04:15 06/28/24 04:16 DC 06/28/24 04:15 Time of 1ST Reevaluation: 04:05 Reevaluation 1ST: Unchanged Patient Education/Counseling: Diagnosis, Treatment Family Education/Counseling: No Family Present Departure 1 Departure Time of Disposition: 05:30 Impression: Primary Impression: Alcohol abuse Additional Impression: Syncopal seizure Disposition: 01 HOME / SELF CARE / HOMELESS Condition: Stable e-Prescriptions Divalproex Sodium (Depakote Er) 500 Mg Tab 2 TAB PO QPM for 90 Days, #180 TAB 3 Refills Prov: CARL WILKINSON MD 06/28/24 Levetiracetam (Keppra) 1,000 Mg Tab 1 TAB PO BID for 90 Days, #180 TAB 5 Refills Prov: CARL WILKINSON MD 06/28/24 Discharged With: Self Critical Care Note Critical Care Time?: No Stability Stability form required: No Heart Score Heart Score: Heart Score Response (Comments) Value History N/A 0 EKG N/A 0 Age N/A 0 Risk Factors N/A 0 Troponin N/A 0 Total 0 I personally scribed for CARL WILKINSON MD ([email or web address]) on 06/28/24 at 04:11. Electronically submitted by Sb Nugent ([email or web address]). CARL WILKINSON MD June 28, 2024 04:11
[2024-06-28] MEDS: levETIRAcetam 500 MG TAB PO ONE (04:15)
[2024-06-28 04:40] VITALS: BP 107/52; TEMP 98.8
[2024-06-28 04:41] LABS: Basophils # (auto) 0.1 10 ^3/uL (0-0.2); Eosinophils # (auto) 0.3 10 ^3/uL (0-0.8); Eosinophils % (auto) 4.2 % (0.0-7.0); Hemoglobin 12.1 g/dL (13.5-17.5); Monocytes # (auto) 0.7 10 ^3/uL (0-1.3); Monocytes % (auto) 9.8 % (0.0-12.0); Neutrophils # (auto) 3.7 10 ^3/uL (1.6-8.6); Nucleated Red Blood Cells % 0.1 %; Platelet Count (auto) 188 10^3/uL (140-450); Red Cell Distribution Width 15.8 % (11.8-14.3)
[2024-06-28 04:43] LABS: Basophils % (auto) 0.7 % (0.0-2.0); Lymphocytes # (auto) 2.4 10 ^3/uL (0.4-5.4); Lymphocytes % (auto) 33.4 % (10.0-50.0); Mean Corpuscular Hgb Conc. 32.6 g/dL (32.0-36.0); Mean Corpuscular Volume 76.6 fL (80.0-100.0); Neutrophils % (auto) 51.9 % (37.0-80.0); Red Blood Cells 4.83 10^6/uL (4.5-5.90); White Blood Cell 7.1 10^3/uL (4.4-10.8)
[2024-06-28 04:52] VITALS: PULSE 70; RESP 17; O2SAT 99
[2024-06-28 05:00] LABS: Alanine Aminotransferase 18 U/L (7-40); Albumin 4.3 g/dL (3.2-4.8); Alkaline Phosphatase 71 U/L (46-116); Anion Gap 10 (5-15); Aspartate Aminotransferase 34 U/L (13-40); BUN/Creatinine Ratio 9.4 (10.0-20.0); Blood Alcohol 204.6 mg/dL (<10); Blood Urea Nitrogen 8 mg/dL (9-23); Calcium 9.2 mg/dL (8.7-10.4); Carbon Dioxide 25 mmol/L (20-31); Chloride 111 mmol/L (98-107); Glucose 83 mg/dL (74-106); Magnesium 2.1 mg/dL (1.6-2.6); Potassium 4.8 mmol/L (3.5-5.1); Sodium 146 mmol/L (136-145); Total Protein 7.6 g/dL (5.7-8.2)
[2024-06-28 05:02] LABS: Bilirubin, Total 0.2 mg/dL (0.2-1.0)
[2024-06-28 05:16] LABS: Urine Bacteria None Seen /hpf (None Seen)
[2024-06-28 05:26] LABS: Urine Blood Negative /uL (Negative); Urine Clarity Clear (Clear); Urine Color Colorless (Yellow); Urine Protein, UAD Negative (Negative); Urine Specific Gravity 1.007 (1.001-1.035); Urine Squamous Epithelial Cell None Seen /hpf (<5); Urine Urobilinogen Normal (Negative); Urine pH 5.5 (5.0-9.0)
[2024-06-28] MEDS ORDERED: LEVE100012 PO (05:41)
[2024-06-28] MEDS ORDERED: DIVA-93 PO (05:41)
== END 2024-06-28 06:49 | disposition home or self-care (01) ==
LOC: EDBD 03:37 → ER 03:37
DX: F10.10 Alcohol abuse, uncomplicated (principal); R55 Syncope and collapse; I10 Essential (primary) hypertension; E11.9 Type 2 diabetes mellitus without complications; I63.9 Cerebral infarction, unspecified; E78.5 Hyperlipidemia, unspecified; F17.210 Nicotine dependence, cigarettes, uncomplicated; R56.9 Unspecified convulsions; Z79.82 Long term (current) use of aspirin; Z79.899 Other long term (current) drug therapy; Z90.89 Acquired absence of other organs
CPT/HCPCS: 36415; 80053; 80320; 81001; 83735; 85025